=== PATIENT | female | born 1975 | race Caucasian/White ===

== ENCOUNTER 2017-06-11 11:21 | Emergency (ER) | payer OTHER, BC ==
[2017-06-11] MEDS ORDERED: Ketorolac Tromethamine 30 MG/ML VIAL ONE (12:13)
[2017-06-11] MEDS ORDERED: Prochlorperazine 10 MG/2 ML VIAL ONE (12:13)
[2017-06-11] MEDS ORDERED: diphenhydrAMINE HCl 50 MG/ML 1 ML VIAL ONE (12:13)
== END 2017-06-11 13:32 | disposition home or self-care (01) ==
LOC: SCSER 11:21
DX: G43.909 Migraine, unspecified, not intractable, without status migrainosus (principal); I10 Essential (primary) hypertension; Z79.1 Long term (current) use of non-steroidal anti-inflammatories (NSAID)
CPT/HCPCS: 96361; 96374; 96375; J0780; J1200; J1885

== ENCOUNTER 2019-12-23 07:40 | Outpatient (CLI) | payer BC ==
--- NOTE | 2019-12-23 09:17 | MRI ---
MRI OF THE LEFT HAND WITHOUT CONTRAST: INDICATION: History of ruptured collateral ligament of the left ring finger. Left finger injury since August 18 with pain and swelling of the left ring finger; worse with activities. TECHNIQUE: Multiplanar, multisequence MR images were obtained of the left hand with specific interest and focus on the left ring finger. No MR comparisons are available. There are radiographic comparisons of the left finger dated 11/11/2019. FINDINGS: The bone marrow signal intensity of the metacarpal and phalanges of the left ring finger are normal-a ppearing. There is no joint effusion identified within the MCP joints or IP joints of the left ring finger. There is no bow stringing of the flexor tendons. There is no flexor tenosynovitis. The ext ensor tendons of the hand appear intact. Intrinsic hand musculature appears within normal limits. T he visualized volar plates appear intact. The collateral ligaments of the MCP and IP joints appear i ntact. IMPRESSION: No MR abnormality identified. POS: [facility]
== END 2019-12-23 07:41 | disposition home or self-care (01) ==
LOC: SCSMRI 07:40
PROVIDERS: ATTEND Orthopaedic Surgery Hand Surgery
DX: S63.41 Traumatic rupture of collateral ligament of finger at metacarpophalangeal and interphalangeal joint (principal)